=== PATIENT | male | born 1960 | race Caucasian/White ===

== ENCOUNTER 2022-08-06 10:20 | Inpatient (IN) | payer OTHER ==
[~2022-08-06] VITALS: Ht 172.7 cm; Wt 69.5 kg
[~2022-08-06 10:20] MED LIST: ACET325 PO; AZIT500 PO; CEFP200 PO; PROBIOTIC1 EAC1 PO; Pepcid40 MG PO
[2022-08-06 11:10] LABS: Source, Urine Clean Catch
[2022-08-06 11:14] LABS: BASOPHILS ABSOLUTE AUTO 0.02 K/mm3 (0.00-0.23); BASOPHILS PERCENT AUTO 0 % (0-2); EOSINOPHILS ABSOLUTE AUTO 0.01 K/mm3 (0.00-0.68); EOSINOPHILS PERCENT AUTO 0 % (0-6); Hematocrit 32.5 % (37.0-53.0); Hemoglobin 11.1 g/dL (13.5-17.5); IMMATURE GRAN ABSOLUTE AUTO 0.08 K/mm3 (0.00-0.10); IMMATURE GRAN PERCENT AUTO 1 % (0-1); LYMPHOCYTES ABSOLUTE AUTO 2.54 K/mm3 (0.84-5.20); LYMPHOCYTES PERCENT AUTO 33 % (21-46); MONOCYTES ABSOLUTE AUTO 0.41 K/mm3 (0.16-1.47); MONOCYTES PERCENT AUTO 5 % (4-13); Mean Corpuscular HGB 29.7 pg (26.0-34.0); Mean Corpuscular HGB Conc 34.2 g/dL (31.5-36.5); Mean Corpuscular Volume 87 fL (80-100); Mean Platelet Volume 11.6 fL (9.1-12.4); NEUTROPHILS ABSOLUTE AUTO 4.58 K/mm3 (1.96-9.15); NEUTROPHILS PERCENT AUTO 60 % (41-73); Platelet Count 164 K/mm3 (150-400); RDW Coefficient Variation 14.4 % (11.7-14.2); RDW Standard Deviation 45.9 fL (35.1-46.3); Red Blood Cell Count 3.74 M/mm3 (4.30-5.90); White Blood Cell Count 7.64 K/mm3 (4.00-11.30)
[2022-08-06 11:38] LABS: Appearance, Urine Clear (Clear); Bilirubin, Urine Neg (Neg); Blood, Urine 1+ (Neg); Color, Urine Yellow (P-Yellow); Glucose Qualitative, Urine Neg (Neg); Ketones, Urine Neg (Neg); Leukocyte Esterase, Urine Neg (Neg); Nitrite, Urine Neg (Neg); Protein, Urine 2+ (Neg); Specific Gravity, Urine 1.015 (1.003-1.022); Urobilinogen, Urine NORM (Normal)
[2022-08-06 11:48] LABS: Alanine Aminotransfer (ALT/SGP 60 U/L (12-78); Albumin, Blood 2.5 g/dL (3.4-5.0); Albumin/Globulin Ratio 0.2 (0.8-1.8); Alk Phos 58 U/L (50-136); Anion Gap 8 mmol/L (6-16); Aspartate Aminotrans (AST/SGOT 51 U/L (12-37); Bilirubin, Direct <0.1 mg/dL (0.0-0.3); Bilirubin, Indirect Unable to Calculate mg/dL (0.1-0.7); Bilirubin, Total 0.5 mg/dL (0.1-1.0); Blood Urea Nitrogen 31 mg/dL (8-24); Bun/Creatinine Ratio 13.7 (12.0-20.0); CO2, Blood 22 mmol/L (21-32); Calcium, Blood 14.5 mg/dL (8.5-10.1); Chloride, Blood 101 mmol/L (98-108); Creatinine, Blood 2.27 mg/dL (0.60-1.20); Globulin, Blood 13.7 g/dL (2.2-4.0); Glomerular Filtration Rate 32 (60-); Glucose, Blood 125 mg/dL (70-99); Potassium, Blood 3.4 mmol/L (3.5-5.5); Sodium, Blood 131 mmol/L (136-145); Total Protein, Blood 16.2 g/dL (6.4-8.2)
[2022-08-06 12:27] LABS: Percent Saturation 34.4 % (20.0-50.0)
[2022-08-06 12:28] LABS: Red Blood Cells, Urine 0-2 /hpf (0-2)
[2022-08-06 12:30] LABS: Squamous Epithelial Cells Not Seen /hpf (Few)
[2022-08-06 12:32] LABS: Bacteria Few /hpf
[2022-08-06 12:35] LABS: Amorphous Light (0-Heavy); Spermatozoa Mod /hpf
[2022-08-06 12:36] LABS: Mucus Light (0-Heavy)
[2022-08-06 17:29] VITALS: BP 182/86
[2022-08-06] MEDS ORDERED: TIZA4 PO (17:51)
--- NOTE | 2022-08-06 18:48 | NUR ---
SHIFT SUMMARY: ASSUMED CARE OF PATIENT UPON HIS ARRIVAL FROM ED AT 1729. A&O X 4, PLEASANT. TELEMETRY PLACED, SR 80. MEDICATED FOR ABD/BACK PAIN, WITH SOME RELIEF. EARLY SATIETY D/T ABD DISCOMFORT, DENIES NAUSEA AT THIS TIME. EDUCATED PATIENT ABOUT SEEMA AND THE NEED FOR IVF, TO WHICH HE VERBALIZED UNDERSTANDING. AMBULATED INDEPENDENTLY TO .
[2022-08-06 19:31] VITALS: BP 137/71
[2022-08-06 21:45] LABS: Bun/Creatinine Ratio 13.4 (12.0-20.0); Calcium, Blood 12.2 mg/dL (8.5-10.1); Creatinine, Blood 2.09 mg/dL (0.60-1.20); Potassium, Blood 3.7 mmol/L (3.5-5.5)
[2022-08-07 04:35] VITALS: BP 131/76
[2022-08-07 05:18] LABS: BASOPHILS ABSOLUTE AUTO 0.01 K/mm3 (0.00-0.23); BASOPHILS PERCENT AUTO 0 % (0-2); EOSINOPHILS ABSOLUTE AUTO 0.04 K/mm3 (0.00-0.68); EOSINOPHILS PERCENT AUTO 1 % (0-6); Hematocrit 25.3 % (37.0-53.0); Hemoglobin 8.3 g/dL (13.5-17.5); IMMATURE GRAN ABSOLUTE AUTO 0.02 K/mm3 (0.00-0.10); IMMATURE GRAN PERCENT AUTO 0 % (0-1); LYMPHOCYTES ABSOLUTE AUTO 2.68 K/mm3 (0.84-5.20); LYMPHOCYTES PERCENT AUTO 43 % (21-46); MONOCYTES ABSOLUTE AUTO 0.37 K/mm3 (0.16-1.47); MONOCYTES PERCENT AUTO 6 % (4-13); Mean Corpuscular HGB 30.1 pg (26.0-34.0); Mean Corpuscular HGB Conc 32.8 g/dL (31.5-36.5); Mean Platelet Volume 11.4 fL (9.1-12.4); NEUTROPHILS ABSOLUTE AUTO 3.15 K/mm3 (1.96-9.15); NEUTROPHILS PERCENT AUTO 50 % (41-73); Platelet Count 110 K/mm3 (150-400); RDW Standard Deviation 50.1 fL (35.1-46.3); Red Blood Cell Count 2.76 M/mm3 (4.30-5.90); White Blood Cell Count 6.27 K/mm3 (4.00-11.30)
--- NOTE | 2022-08-07 05:24 | NUR ---
SUMMARY: PT A/OX4, CALLS APPROPRIATELY TO SPECIFY NEEDS AND IS PLEASANT AND COOPERATIVE W/CARE. HE'S INDPENDENT IN ROOM AND USED URINAL AD ESTEFANI. URINE SPECIMEN OBTAINED AND SENT, RESULTS PENDING. NS INFUSES AT 2OO ML/HR AND NORCO RECIEVED X1 FOR TOLERABLE RELIEF OF LOW BACK PAIN. HE DENIED NAUSEA AND ALL OTHER COMPLAINTS. PT REMAINS ON TELE IN NSR AT 60'S BPM. VSS/AFEBRILE, NO ACUTE CHANGES. WCTM AND REPORT TO DAY RN.
[2022-08-07 05:28] LABS: Mean Corpuscular Volume 92 fL (80-100)
[2022-08-07 06:00] LABS: Albumin, Blood 1.9 g/dL (3.4-5.0); Albumin/Globulin Ratio 0.2 (0.8-1.8); Bilirubin, Total 0.3 mg/dL (0.1-1.0); Bun/Creatinine Ratio 13.1 (12.0-20.0); Calcium, Blood 11.6 mg/dL (8.5-10.1); Creatinine, Blood 1.99 mg/dL (0.60-1.20); Globulin, Blood 9.4 g/dL (2.2-4.0); Potassium, Blood 3.8 mmol/L (3.5-5.5); Total Protein, Blood 11.3 g/dL (6.4-8.2)
[2022-08-07 07:42] VITALS: BP 127/72
[2022-08-07 10:17] LABS: Hematocrit 23.1 % (37.0-53.0); Hemoglobin 7.7 g/dL (13.5-17.5)
[2022-08-07 12:54] LABS: Bun/Creatinine Ratio 13.1 (12.0-20.0); Calcium, Blood 11.8 mg/dL (8.5-10.1); Creatinine, Blood 1.99 mg/dL (0.60-1.20); Potassium, Blood 3.8 mmol/L (3.5-5.5)
[2022-08-07 15:00] VITALS: BP 128/72
[2022-08-07 16:48] LABS: Hematocrit 23.7 % (37.0-53.0); Hemoglobin 7.9 g/dL (13.5-17.5)
--- NOTE | 2022-08-07 17:12 | NUR ---
SHIFT SUMMARY- PT IS A/O, PLESANT AND COOPERATIVE. HE IS EATING AND DRINKING WELL. HE IS RECIEVING FLUIDS. HE SLEPT INTERMITENTLY THROUGHOUT THIS SHIFT. HIS BED IS IN THE LOW POSTION AND CALL LIGHT IS WITIN REACH.
[2022-08-07 18:08] LABS: RETIC HGB EQUIVALENT 35.2 pg (28.20-36.60); RETICULOCYTE COUNT PERCENT 0.57 % (0.50-2.50)
[2022-08-07 18:41] LABS: Percent Saturation 32.2 % (20.0-50.0)
[2022-08-07 19:38] VITALS: BP 176/84
[2022-08-07 20:22] VITALS: BP 169/90
[2022-08-07 20:50] VITALS: BP 158/86
--- NOTE | 2022-08-08 04:07 | NUR ---
SHIFT SUMMARY; NO ACUTE CHANGES OVERNIGHT. THE PT IS AXO X4 AND INDEPENDENT IN THE ROOM. THE PT HAS NOT REPORTED ANY SOB,CHEST PAIN/PRESSURE OR N/V THIS SHIFT. THE PT DOES REPORT SOME BACK PAIN W/MOVEMENT. TELE IS IN PLACE-NSR IN THE 70'S THIS SHIFT. CURRENTLY THE PT IS SLEEPING IN BED WITH THE BED IN THE LOWEST POSITION AND THE CALL LIGHT AT BEDSIDE.
[2022-08-08 04:23] VITALS: BP 158/80
[2022-08-08 06:24] LABS: Hematocrit 26.2 % (37.0-53.0); Hemoglobin 8.8 g/dL (13.5-17.5)
[2022-08-08 06:58] LABS: Bun/Creatinine Ratio 16.4 (12.0-20.0); Calcium, Blood 11.4 mg/dL (8.5-10.1); Creatinine, Blood 1.77 mg/dL (0.60-1.20); Potassium, Blood 3.7 mmol/L (3.5-5.5)
[2022-08-08 07:43] VITALS: BP 160/84
--- NOTE | 2022-08-08 10:15 | NUR ---
NURSE NOTE THIS RN HAS REVIEWED AND AGREED WITH STUDENT NURSE SHIFT ASSESSMENT
[2022-08-08] MEDS ORDERED: VITAMIN D31000 UNI1 PO (12:35)
[2022-08-08] MEDS ORDERED: ONDA4 PO (12:35)
--- NOTE | 2022-08-08 13:14 | NUR ---
DISCHARGE SUMMARY: PT PROVIDED WITH DISCHARGE TEACHING TO INCLUDE FOLLOW-UP CARE AND MEDICATIONS. PT VERBALIZES UNDERSTANDING OF DISCHARGE INSTRUCTIONS. PT DRESSED IN OWN CLOTHES, ALL BELONGINGS GATHERED, AND DISCHARGED VIA WHEELCHAIR WITH [facility] FLOOR STAFF TO AWAITING VEHICLE WITH FAMILY FRIEND GROOVER AND TURNER.
--- NOTE | 2022-08-08 13:26 | NUR ---
SHIFT SUMMARY THIS RN AGREES WITH STUDENT NURSE DISCHARGE SUMMARY
[2022-08-12 16:08] LABS: A/G RATIO 0.4 (0.7-1.7); ALBUMIN 3.3 g/dL (2.9-4.4); ALPHA-1-GLOBULIN 0.3 g/dL (0.0-0.4); ALPHA-2-GLOBULIN 1.1 g/dL (0.4-1.0); BETA GLOBULIN 1.2 g/dL (0.7-1.3); GAMMA GLOBULIN 5.7 g/dL (0.4-1.8); GLOBULIN, TOTAL 8.3 g/dL (2.2-3.9); IMMUNOGLOBULIN A, QN, SERUM 18 mg/dL (61-437); IMMUNOGLOBULIN G, QN, SERUM 7951 mg/dL (603-1613); IMMUNOGLOBULIN M, QN, SERUM 15 mg/dL (20-172); M-SPIKE Comment: g/dL (Not Observed); PROTEIN, TOTAL, SERUM 11.6 g/dL (6.0-8.5)
[2022-08-13 11:11] LABS: M-SPIKE, % Comment: % (Not Observed); PROTEIN,TOTAL,URINE 10.4 mg/dL (Not Estab.)
[2022-08-14 12:08] LABS: A/G RATIO 0.4 (0.7-1.7); ALBUMIN 3.5 g/dL (2.9-4.4); ALPHA-1-GLOBULIN 0.3 g/dL (0.0-0.4); ALPHA-2-GLOBULIN 1.3 g/dL (0.4-1.0); BETA GLOBULIN 1.6 g/dL (0.7-1.3); GAMMA GLOBULIN 6.1 g/dL (0.4-1.8); GLOBULIN, TOTAL 9.4 g/dL (2.2-3.9); IMMUNOGLOBULIN G, QN, SERUM 8560 mg/dL (603-1613); M-SPIKE 5.7 g/dL (Not Observed); PROTEIN, TOTAL, SERUM 12.9 g/dL (6.0-8.5)
== END 2022-08-08 13:12 | disposition home or self-care (01) | DRG 683 ==
LOC: ER 10:20 → MEDS 10:21 → ER 10:21 → MEDS 17:24
PROVIDERS: Family Medicine; Internal Medicine; Physician Assistant; Student in an Organized Health Care Education/Training Program; ADMIT Hospitalist
DX: N17.9 Acute kidney failure, unspecified (principal); E87.1 Hypo-osmolality and hyponatremia; R65.10 Systemic inflammatory response syndrome (SIRS) of non-infectious origin without acute organ dysfunction; K92.1 Melena; M48.54XA Collapsed vertebra, not elsewhere classified, thoracic region, initial encounter for fracture; R40.4 Transient alteration of awareness; E83.52 Hypercalcemia; E87.6 Hypokalemia; E86.1 Hypovolemia; F12.90 Cannabis use, unspecified, uncomplicated; K21.9 Gastro-esophageal reflux disease without esophagitis; E86.0 Dehydration; Z71.51 Drug abuse counseling and surveillance of drug abuser; Z87.891 Personal history of nicotine dependence; Z79.899 Other long term (current) drug therapy
CPT/HCPCS: 36415; 71046; 71250; 74177; 80048; 80053; 80076; 81001; 82306; 82330; 82397; 82607; 82728; 82746; 82784; 83521; 83540; 83550; 83690; 83880; 83970; 84155; 84156; 84165; 84166; 84484; 85014; 85018; 85025; 85045; 86334; 93005; 93010; 94640; 94664; 94762; 96361; 96372; 96374-59; 96375; 99285-25; A9270; G0378; J1650; J2270; J2405; J7030; J7120; Q9967